=== PATIENT | male | born 1995 | race African-American/Black ===

== ENCOUNTER 2023-09-11 13:59 | Emergency (ER) | payer BC ==
[2023-09-11 14:56] LABS: #Monocytes 0.4 thou/uL (0.11-0.59); %Basophils 0.4 % (0.0-1.0); %Eosinophils 0.4 % (0.0-10.0); %Lymphocytes 20.9 % (21.0-51.0); %Monocytes 7.3 % (0.0-10.0); %Neutrophils 70.6 % (42.0-75.0); Hematocrit 43.5 % (42.0-52.0); Hemoglobin 14.5 g/dL (14.0-18.0); Mean Corpuscular HGB CONC 33.3 g/dL (32.0-36.0); Mean Corpuscular Hemoglobin 32.7 pg (27.0-31.0); Platelet Count 283 10x3/uL (130-400); RBC Distribution Width 11.3 % (11.5-14.5); Red Blood Cell (RBC) Count 4.44 mill/uL (4.70-6.10); White Blood Cell (WBC) Count 5.6 10x3/uL (4.8-10.8)
[2023-09-11] MEDS ORDERED: hydrOXYzine 25 MG TAB ONE (15:12)
[2023-09-11 15:16] LABS: Troponin I 0.015 ng/mL (< 0.028)
[2023-09-11 15:26] LABS: ALT (SGPT) 24 U/L (8-55); AST (SGOT) 24 U/L (5-34); Albumin 4.8 g/dL (3.5-5.0); Alkaline Phosphatase 90 U/L (40-110); Anion Gap 13 mmol/L (10-20); BUN (Urea Nitrogen) 11 mg/dL (8.9-20.6); Bilirubin, Total 1.3 mg/dL (0.2-1.2); Calc. Creatinine Clearance 0 mL/min (70-130); Calcium 10.1 mg/dL (7.8-10.44); Carbon Dioxide 26 mmol/L (22-29); Chloride 102 mmol/L (98-107); Estimated GFR 69; Globulin 3.7 g/dL (2.4-3.5); Glucose 105 mg/dL (70-105); Potassium 4.1 mmol/L (3.5-5.1); Protein, Total 8.5 g/dL (6.0-8.3); Sodium 137 mmol/L (136-145)
== END 2023-09-11 15:50 | disposition home or self-care (01) ==
LOC: ERS 13:59
DX: N17.9 Acute kidney failure, unspecified (principal); R00.2 Palpitations
CPT/HCPCS: 36415; 71045; 80053; 83880; 84484; 85025; 93005

== ENCOUNTER 2024-03-07 05:01 | Emergency (ER) | payer BC ==
[2024-03-07 06:08] LABS: #Basophils Less than 0.03 10x3/uL (0.0-0.2); %Basophils 0.1 % (0.0-1.0); %Eosinophils 0.4 % (0.0-10.0); %Lymphocytes 24.1 % (21.0-51.0); %Monocytes 6.7 % (0.0-10.0); %Neutrophils 68.3 % (42.0-75.0); Hematocrit 39.9 % (42.0-52.0); Hemoglobin 13.5 g/dL (14.0-18.0); Mean Corpuscular HGB CONC 33.8 g/dL (32.0-36.0); Mean Corpuscular Hemoglobin 32.8 pg (27.0-31.0); Mean Corpuscular Volume 97.1 fL (78.0-98.0); Mean Platelet Volume 9.2 fL (7.4-10.4); Platelet Count 254 10x3/uL (130-400); RBC Distribution Width 11.6 % (11.5-14.5); Red Blood Cell (RBC) Count 4.11 mill/uL (4.70-6.10)
[2024-03-07] MEDS ORDERED: Ibuprofen 800 MG TAB ONE (06:09)
[2024-03-07 06:21] LABS: ALT (SGPT) 23 U/L (8-55); AST (SGOT) 26 U/L (5-34); Albumin 4.4 g/dL (3.5-5.0); Alkaline Phosphatase 99 U/L (40-110); Anion Gap 15 mmol/L (10-20); BUN (Urea Nitrogen) 12 mg/dL (8.9-20.6); Bilirubin, Total 0.8 mg/dL (0.2-1.2); Calc. Creatinine Clearance 0 mL/min (70-130); Calcium 9.8 mg/dL (7.8-10.44); Carbon Dioxide 23 mmol/L (22-29); Estimated GFR 74; Globulin 3.9 g/dL (2.4-3.5); Glucose 113 mg/dL (70-105); Lipase 25 U/L (8-78); Protein, Total 8.3 g/dL (6.0-8.3)
[2024-03-07 06:25] LABS: Troponin I Less than 0.010 ng/mL (< 0.028)
[2024-03-07 06:40] LABS: Chloride 105 mmol/L (98-107); Sodium 139 mmol/L (136-145)
== END 2024-03-07 08:03 | disposition home or self-care (01) ==
LOC: ERS 05:01
DX: R53.83 Other fatigue (principal)
CPT/HCPCS: 36415; 71045; 80053; 83690; 83735; 84484; 85025; 93005

== ENCOUNTER 2024-04-28 19:33 | Emergency (ER) | payer BC ==
[2024-04-28 20:19] LABS: Bacteria/HPF None Seen HPF (None Seen); Bilirubin Negative (Negative); Blood, Urine Negative (Negative); CAUTI Indications for Culture Pelvic or flank pain; Clarity Clear (Clear); Glucose, Urine (Dipstick) Normal (Negative); Ketone, Urine Negative (Negative); Leukocyte Negative Leu/uL (Negative); Nitrite Negative (Negative); Protein, Urine (Dipstick) Negative (Neg-Trace); RBC/HPF 0-3 HPF (0-3); Squamous Epithelial None Seen HPF (0-3); Urobilinogen Normal mg/dL (Less than 2); WBC/HPF 0-3 HPF (0-3); pH, Urine 6.5 (5.0-9.0)
[2024-04-28 20:22] LABS: Urine Culture Reflex No No
[2024-04-28 21:14] LABS: Mean Corpuscular Volume 93.4 fL (78.0-98.0); Platelet Count 260 10x3/uL (130-400); RBC Distribution Width 11.5 % (11.5-14.5)
[2024-04-28 21:35] LABS: ALT (SGPT) 50 U/L (8-55); AST (SGOT) 49 U/L (5-34); Albumin 4.2 g/dL (3.5-5.0); Alkaline Phosphatase 96 U/L (40-110); Anion Gap 13 mmol/L (10-20); BUN (Urea Nitrogen) 12 mg/dL (8.9-20.6); Bilirubin, Total 0.8 mg/dL (0.2-1.2); Calc. Creatinine Clearance 0 mL/min (70-130); Calcium 9.1 mg/dL (7.8-10.44); Carbon Dioxide 22 mmol/L (22-29); Chloride 103 mmol/L (98-107); Estimated GFR 84; Globulin 3.7 g/dL (2.4-3.5); Glucose 78 mg/dL (70-105); Potassium 3.7 mmol/L (3.5-5.1); Protein, Total 7.9 g/dL (6.0-8.3); Sodium 134 mmol/L (136-145)
[2024-04-28 21:57] LABS: #Basophils 0.03 10x3/uL (0.0-0.2); %Basophils 0.5 % (0.0-1.0); %Eosinophils 2.7 % (0.0-10.0); %Lymphocytes 38.7 % (21.0-51.0); %Monocytes 10.3 % (0.0-10.0); %Neutrophils 47.5 % (42.0-75.0); Hematocrit 38.3 % (42.0-52.0); Mean Corpuscular HGB CONC 33.9 g/dL (32.0-36.0); Mean Corpuscular Hemoglobin 31.7 pg (27.0-31.0); Mean Platelet Volume 9.4 fL (7.4-10.4)
[2024-04-28] MEDS ORDERED: Dicyclomine 20 MG TAB ONE (22:03)
[2024-04-28 23:29] LABS: Influenza A by NAA Not Detected (NotDetected); Influenza B by NAA Not Detected (NotDetected); SARS-CoV-2 NAA Rapid Test Not Detected (NotDetected)
== END 2024-04-29 03:13 | disposition home or self-care (01) ==
LOC: ERS 19:33
DX: R19.7 Diarrhea, unspecified (principal)
CPT/HCPCS: 36415; 80053; 81001; 85025; 99284

== ENCOUNTER 2025-06-04 02:04 | Emergency (ER) | payer BC ==
[2025-06-04 02:54] LABS: #Basophils 0.03 10x3/uL (0.0-0.2); #Eosinophils 0.20 10x3/uL (0.0-0.7); #Monocytes 0.55 10x3/uL (0.11-0.59); #Neutrophils 2.16 10x3/uL (1.40-6.50); %Basophils 0.6 % (0.0-1.0); %Eosinophils 4.3 % (0.0-10.0); %Lymphocytes 37.2 % (21.0-51.0); %Monocytes 11.7 % (0.0-10.0); %Neutrophils 46.0 % (42.0-75.0); Hematocrit 41.4 % (42.0-52.0); Hemoglobin 13.5 g/dL (14.0-18.0); Mean Corpuscular Hemoglobin 31.5 pg (27.0-31.0); Mean Corpuscular Volume 96.7 fL (78.0-98.0); Platelet Count 229 10x3/uL (130-400); Red Blood Cell (RBC) Count 4.28 mill/uL (4.70-6.10); White Blood Cell (WBC) Count 4.70 10x3/uL (4.8-10.8)
[2025-06-04 03:13] LABS: ALT (SGPT) 24 U/L (Less than 45); AST (SGOT) 31 U/L (11-34); Albumin 4.4 g/dL (3.1-4.5); Alkaline Phosphatase 94 U/L (40-110); Anion Gap 14 mmol/L (10-20); BUN (Urea Nitrogen) 11 mg/dL (8.9-20.6); Bilirubin, Total 0.6 mg/dL (0.3-1.2); Calc. Creatinine Clearance 0 mL/min (70-130); Calcium 9.1 mg/dL (7.8-10.44); Carbon Dioxide 22 mmol/L (22-29); Chloride 105 mmol/L (98-107); Globulin 3.9 g/dL (2.4-3.5); Glucose 100 mg/dL (70-105); Potassium 3.7 mmol/L (3.5-5.1); Sodium 137 mmol/L (136-145)
[2025-06-04] MEDS ORDERED: Famotidine 20 MG TAB ONE (04:33)
[2025-06-04] MEDS ORDERED: Mag-Al 1200 mg/1200 mg/30 ML UDCUP ONE (04:33)
[2025-06-04] MEDS ORDERED: Lidocaine Viscous Sol 2% 15 ml UD Cup ONE (04:34)
== END 2025-06-04 05:58 | disposition home or self-care (01) ==
LOC: ERS 02:04
DX: R07.9 Chest pain, unspecified (principal); R53.83 Other fatigue
CPT/HCPCS: 36415; 71046; 80053; 84484; 85025; 93005